=== PATIENT | female | born 1990 | race Caucasian/White ===

== ENCOUNTER 2018-07-04 19:53 | Emergency (ER) | payer OTHER ==
[~2018-07-04] VITALS: Ht 157.5 cm; Wt 68.2 kg
[~2018-07-04 19:53] MED LIST: IBUP200C5 PO
[2018-07-04 20:32] LABS: APPEARANCE,URINE CLOUDY (CLEAR); BILIRUBIN,URINE NEGATIVE (NEGATIVE); GLUCOSE, URINE (UA) NEGATIVE (NEGATIVE); KETONES,URINE TRACE mg/dL (NEGATIVE); LEUKOCYTE ESTERASE ,URINE NEGATIVE (NEGATIVE); NITRATE,URINE POSITIVE (NEGATIVE); OCCULT BLOOD,URINE TRACE (NEGATIVE); PROTEIN,URINE NEGATIVE (NEGATIVE)
[2018-07-04 20:46] LABS: BACTERIA,URINE Many /HPF (None Seen)
[2018-07-04 20:47] LABS: RBC,URINE 0-2 /HPF (0-2); WBC,URINE 0-2 /HPF (0-5)
[2018-07-04 20:48] LABS: SQUAMOUS EPITHELIAL CELL,UR Moderate /LPF (None Seen)
[2018-07-04 20:50] VITALS: BP 128/81
[2018-07-04] MEDS ORDERED: IBUPROFEN 600 MG TABLET PO ONE (21:00)
[2018-07-04] MEDS ORDERED: ONDANSETRON HCL 4 MG TABLET PO ONE (22:15)
== END 2018-07-04 23:05 | disposition home or self-care (01) ==
LOC: EMS 19:55
DX: S06.0X0A Concussion without loss of consciousness, initial encounter (principal); W18.09XA Striking against other object with subsequent fall, initial encounter; M54.2 Cervicalgia; Z88.0 Allergy status to penicillin; Y93.89 Activity, other specified; Y92.89 Other specified places as the place of occurrence of the external cause; Y99.8 Other external cause status
CPT/HCPCS: 70450; 72125; 87086